=== PATIENT | male | born 2000 | race Caucasian/White ===

== ENCOUNTER 2022-01-18 10:42 | Emergency (ER) | payer MEDICAID ==
[~2022-01-18] VITALS: Ht 170.2 cm; Wt 70.3 kg
[2022-01-18 10:44] VITALS: BP 121/66
--- NOTE | 2022-01-18 10:52 | NUR ---
21Y MALE BIBA FROM CLINIC DUE TO SYNCOPAL EPISODIE. PT FELL AND HIT HEAD, +LOC. PT ADMITS TO DRUG USE - FENTANYL AND XANAX. NO SIGNS OF TRAUMA NOTED. PT DENIES ANY PAIN AT THIS TIME. PT A&OX4, GCS 15. PT PLACED ON BEDSIDE SOCK KNITTER AND PUT INTO GOWN PMH: DENIES NKA
--- NOTE | 2022-01-18 10:55 | NUR ---
PT GIVEN WARM BLANKET BEDSIDE
--- NOTE | 2022-01-18 11:21 | NUR ---
PT REQUESTING TO LEAVE AMA. SUSANNE REGAN MADE AWARE AND CURRENTLY SPEAKING TO PATIENT
--- NOTE | 2022-01-18 11:34 | NUR ---
Patient discharged with v/s stable. Written and verbal after care instructions given and explained. Patient verbalized understanding. Ambulatory with steady gait. All questions addressed prior to discharge. Advised to follow up with PMD.
== END 2022-01-18 11:34 | disposition home or self-care (01) ==
LOC: MED 10:42
DX: S00.531A Contusion of lip, initial encounter (principal); R55 Syncope and collapse; F13.10 Sedative, hypnotic or anxiolytic abuse, uncomplicated; F12.90 Cannabis use, unspecified, uncomplicated; F15.90 Other stimulant use, unspecified, uncomplicated; X58.XXXA Exposure to other specified factors, initial encounter; Y92.89 Other specified places as the place of occurrence of the external cause; Y93.89 Activity, other specified; Y99.8 Other external cause status
CPT/HCPCS: 99283